=== PATIENT | female | born 1975 | race American Indian/Alaskan Native ===

== ENCOUNTER 2021-01-19 11:50 | Outpatient (CLI) | payer OTHER ==
--- NOTE | 2021-01-19 13:13 | XRay Report ---
RIGHT FEMUR 2 VIEWS INDICATION: PAIN IN RIGHT HIP. COMPARISON: None. IMPRESSION: There is been previous internal stabilization of the right femur with an intramedullary jairo. Previous fixation of the patella is also noted. Chronic healed fracture of the right femoral sh aft is present. No acute osseous abnormality is detected. The soft tissues are unremarkable. Articula tion at the right hip appears within normal limits. No advanced degenerative changes or osteonecrosis . Signer Name: Cornelio Lopez Jr, MD Signed: 01/19/2021 1:09 PM Workstation Name: [id number]
--- NOTE | 2021-01-19 15:02 | XRay Report ---
Right knee radiograph, 2 views. 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 Small femorotibial osteophytes. No acute fracture or malalignment. IMPRESSION: No acute process. Signer Name: Cornelius Mayen MD Signed: 01/19/2021 2:57 PM Workstation Name: [id number]
== END 2021-01-19 11:51 | disposition home or self-care (01) ==
LOC: XRAY 11:50
PROVIDERS: ATTEND Orthopaedic Surgery
DX: M17.11 Unilateral primary osteoarthritis, right knee (principal); M25.761 Osteophyte, right knee; M25.551 Pain in right hip

== ENCOUNTER 2022-05-13 17:21 | Emergency (ER) | payer OTHER | END 2022-05-14 19:00 | disposition left against medical advice (07) | LOC: ED 17:21 | DX: R06.02 Shortness of breath (principal); Z53.21 Procedure and treatment not carried out due to patient leaving prior to being seen by health care provider ==